=== PATIENT | male | born 1990 | race Caucasian/White ===

== ENCOUNTER → 2017-04-01 | Outpatient (REF) | payer SELFPAY | LOC: M LAB REF 19:28 → M SFHCLUC 19:28 | PROVIDERS: ATTEND Nurse Practitioner Family | DX: J02.9 Acute pharyngitis, unspecified (principal) ==

== ENCOUNTER 2018-09-14 17:40 | Emergency (ER) | payer OTHER, SELFPAY ==
[~2018-09-14] VITALS: Ht 188 cm; Wt 106.7 kg
--- NOTE | 2018-09-14 18:22 | REP ---
Right hand four views : There is no fracture or dislocation. Mineralization and joint spaces are normal. There are no calcifications or foreign bodies. Impression: Negative right hand . Electronically Signed by Salvador Morales MD 09/14/2018 06:13 P
[2018-09-14 18:36] VITALS: BP 147/91
== END 2018-09-14 19:20 | disposition home or self-care (01) ==
LOC: M ED 17:40
DX: S60.141A Contusion of right ring finger with damage to nail, initial encounter (principal); W23.0XXA Caught, crushed, jammed, or pinched between moving objects, initial encounter; Y92.89 Other specified places as the place of occurrence of the external cause; Y93.89 Activity, other specified; Y99.0 Civilian activity done for income or pay

== ENCOUNTER 2019-04-05 13:10 | Emergency (ER) | payer MEDICARE, OTHER, SELFPAY ==
[~2019-04-05] VITALS: Ht 185.4 cm; Wt 102.1 kg
[2019-04-05 14:20] LABS: BASO % 0.4 % (0.0-1.0); EOS % 0.6 % (0.0-3.0); HEMATOCRIT 45.6 % (42.0-52.0); HEMOGLOBIN 15.5 g/dl (13.5-17.5); LYMPH # 1.7 10^3/uL (1.5-5.0); MEAN CORPUSCULAR HEMOGLOBIN 30.6 pg (27.0-33.0); MEAN CORPUSCULAR VOLUME 90.1 fl (80.0-96.0); MONO # 0.6 10^3/uL (0.0-0.8); NEUTROPHILS # 4.7 10^3/uL (1.5-8.5); NEUTROPHILS % 66.3 % (36.0-66.0); PLATELET COUNT, AUTOMATED 243 10^3/uL (150-450); RED BLOOD COUNT 5.06 10^6/uL (4.30-6.10); WHITE BLOOD COUNT 7.1 10^3/uL (4.0-10.0)
--- NOTE | 2019-04-05 14:31 | REP ---
Head CT without contrast: History: Dizziness. Comparison study: No comparison study. CT findings: Bone window settings demonstrate an intact bony calvarium. There is no evidence of skull fracture or incidental bony calvarial lesion. The visualized paranasal sinuses appear clear. No intraorbital abnormality is seen. On soft tissue window setting images; the lateral, third, and fourth ventricles are normal in size and position. Clark-white differentiation pattern is normal above and below the tentorium. There are is no evidence of intracranial hemorrhage. No mass, edema, infarction, or midline shift is seen. No extra-axial fluid collection is appreciated. Impression: Negative noncontrast head CT. Electronically Signed by Meño Parks MD 04/05/2019 02:22 P
[2019-04-05 14:53] LABS: ALBUMIN 4.3 GM/DL (3.2-5.2); ALT/SGPT 29 U/L (12-78); BLOOD UREA NITROGEN 13 MG/DL (7-18); CALCIUM LEVEL 9.3 MG/DL (8.5-10.1); CARBON DIOXIDE LEVEL 30 MEQ/L (21-32); CHLORIDE LEVEL 105 MEQ/L (98-107); CREATININE FOR GFR 1.19 MG/DL (0.70-1.30); GLOMERULAR FILTRATION RATE > 60.0 (>60); GLUCOSE, FASTING 80 MG/DL (70-100); POTASSIUM SERUM 4.7 MEQ/L (3.5-5.1); SODIUM LEVEL 141 MEQ/L (136-145); TOTAL PROTEIN 7.1 GM/DL (6.4-8.2)
[2019-04-05 16:02] VITALS: BP 144/78
--- NOTE | 2019-04-05 20:11 | ECGEPIP ---
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
== END 2019-04-05 16:56 | disposition home or self-care (01) ==
LOC: M ED 13:10
DX: Z72.820 Sleep deprivation (principal); G56.00 Carpal tunnel syndrome, unspecified upper limb; R94.31 Abnormal electrocardiogram [ECG] [EKG]; F41.9 Anxiety disorder, unspecified

== ENCOUNTER → 2019-04-12 | Outpatient (REF) | payer OTHER | LOC: M SFHCLERA 10:00 | PROVIDERS: ATTEND Physician Assistant | DX: Z20.818 Contact with and (suspected) exposure to other bacterial communicable diseases (principal) ==

== ENCOUNTER 2022-12-01 18:58 | Emergency (ER) | payer OTHER, SELFPAY ==
[~2022-12-01] VITALS: Ht 185.4 cm; Wt 111.4 kg
[2022-12-01 19:40] LABS: BASO # 0.1 10^3/uL (0.0-0.2); BASO % 0.5 % (0.0-1.0); EOS # 0.1 10^3/uL (0.0-0.5); EOS % 0.8 % (0.0-3.0); HEMATOCRIT 43.6 % (42.0-52.0); LYMPH # 2.6 10^3/uL (1.5-5.0); LYMPH % 26.3 % (24.0-44.0); MEAN CORPUSCULAR HEMOGLOBIN 29.9 pg (27.0-33.0); MEAN CORPUSCULAR HGB CONC 34.4 g/dl (32.0-36.5); MEAN CORPUSCULAR VOLUME 86.9 fl (80.0-96.0); MONO # 0.7 10^3/uL (0.0-0.8); MONO % 7.5 % (2.0-8.0); NEUTROPHILS # 6.3 10^3/uL (1.5-8.5); NEUTROPHILS % 64.2 % (36.0-66.0); PLATELET COUNT, AUTOMATED 259 10^3/uL (150-450); RED BLOOD COUNT 5.02 10^6/uL (4.30-6.10); WHITE BLOOD COUNT 9.7 10^3/uL (4.0-10.0)
[2022-12-01 19:55] LABS: CK-MB VALUE MASS < 1.0 NG/ML (<3.6); LIPASE 37 U/L (12-53)
[2022-12-01 19:56] LABS: ALBUMIN 4.4 G/DL (3.2-5.2); ALKALINE PHOSPHATASE 82 U/L (46-116); ALT/SGPT 66 U/L (7.0-40); AST/SGOT 29 U/L (<34); BILIRUBIN,DIRECT 0.2 MG/DL (<0.4); BILIRUBIN,TOTAL 0.6 MG/DL (0.3-1.2); CPK CREATINE PHOSPHOKINASE 137 U/L (46-171); INR 1.04; MB/CK RELATIVE INDEX 0.72 (< OR =4); PROTHROMBIN TIME 13.8 SECONDS (12.5-14.5)
[2022-12-01 22:48] LABS: D-DIMER QUANT < 270 ng/ml (<500)
[2022-12-01 23:39] VITALS: BP 152/94
== END 2022-12-01 23:43 | disposition home or self-care (01) ==
LOC: M ED 18:58
DX: R07.89 Other chest pain (principal)

== ENCOUNTER 2024-09-16 09:18 | Emergency (ER) | payer BC, SELFPAY ==
[~2024-09-16] VITALS: Ht 185.4 cm; Wt 122.6 kg
[2024-09-16 09:27] VITALS: BP 145/91; TEMP 97.6; O2SAT 99
[2024-09-16] MEDS: TETRACAINE 0.5% OPHTH SOLN 4ML OD ONE (10:25)
[2024-09-16] MEDS: FLUORESCEIN OPHTH 1MG STRIP OD ONE (10:25)
== END 2024-09-16 12:00 | disposition home or self-care (01) ==
LOC: M ED 09:18
DX: H53.8 Other visual disturbances (principal); F10.10 Alcohol abuse, uncomplicated; F41.9 Anxiety disorder, unspecified

== ENCOUNTER 2024-11-09 00:36 | Emergency (ER) | payer BC ==
[~2024-11-09] VITALS: Ht 185.4 cm; Wt 119.4 kg
[2024-11-09 01:12] LABS: BASO % 0.4 % (0.0-1.0); EOS # 0.1 10^3/uL (0.0-0.5); EOS % 1.2 % (0.0-3.0); HEMATOCRIT 43.7 % (42.0-52.0); HEMOGLOBIN 14.9 g/dl (13.5-17.5); LYMPH # 2.7 10^3/uL (1.5-5.0); LYMPH % 36.4 % (24.0-44.0); MEAN CORPUSCULAR HEMOGLOBIN 29.7 pg (27.0-33.0); MEAN CORPUSCULAR HGB CONC 34.1 g/dl (32.0-36.5); MEAN CORPUSCULAR VOLUME 87.2 fl (80.0-96.0); MONO # 0.8 10^3/uL (0.0-0.8); MONO % 10.2 % (2.0-8.0); NEUTROPHILS # 3.8 10^3/uL (1.5-8.5); NEUTROPHILS % 51.1 % (36.0-66.0); PLATELET COUNT, AUTOMATED 271 10^3/uL (150-450); RED BLOOD COUNT 5.01 10^6/uL (4.30-6.10); WHITE BLOOD COUNT 7.4 10^3/uL (4.0-10.0)
[2024-11-09 01:46] LABS: BLOOD UREA NITROGEN 15 MG/DL (9-23); CALCIUM LEVEL 8.8 MG/DL (8.5-10.1); CARBON DIOXIDE LEVEL 26 MMOL/L (20-31); CHLORIDE LEVEL 106 MMOL/L (98-107); CK-MB VALUE MASS < 1.0 NG/ML (<3.6); CREATININE FOR GFR 0.87 MG/DL (0.70-1.30); GLOMERULAR FILTRATION RATE > 90.0 (>60); GLUCOSE, FASTING 109 MG/DL (60-100); POTASSIUM SERUM 4.1 MMOL/L (3.5-5.1); SODIUM LEVEL 140 MMOL/L (136-145)
[2024-11-09 01:47] LABS: CPK CREATINE PHOSPHOKINASE 241 U/L (46-171); MB/CK RELATIVE INDEX 0.41 (< OR =4)
[2024-11-09 02:48] LABS: CK-MB VALUE MASS < 1.0 NG/ML (<3.6)
[2024-11-09 02:50] LABS: CPK CREATINE PHOSPHOKINASE 245 U/L (46-171)
[2024-11-09 05:43] LABS: MAGNESIUM LEVEL 2.1 MG/DL (1.8-2.4)
[2024-11-09 05:48] LABS: FREE T4 1.06 NG/DL (0.89-1.76); THYROID STIMULATING HORMONE 2.197 uIU/ML (0.55-4.78)
[2024-11-09 07:30] VITALS: BP 137/80; TEMP 98.9
[2024-11-09] MEDS ORDERED: HOLTER MONITOR XX (07:34)
[2024-11-09] MEDS ORDERED: PROP10TA56 PO (07:34)
[2024-11-09 07:43] VITALS: O2SAT 96
== END 2024-11-09 08:16 | disposition home or self-care (01) ==
LOC: M ED 00:36
DX: R00.2 Palpitations (principal); I49.3 Ventricular premature depolarization; Z79.899 Other long term (current) drug therapy

== ENCOUNTER 2024-11-18 13:07 | Emergency (ER) | payer SELFPAY ==
[~2024-11-18] VITALS: Ht 185.4 cm; Wt 113.8 kg
[~2024-11-18 13:07] MED LIST: HOLTER MONITOR XX; PROP10TA56 PO
[2024-11-18 14:00] LABS: BASO % 0.4 % (0.0-1.0); EOS % 0.4 % (0.0-3.0); HEMATOCRIT 45.4 % (42.0-52.0); HEMOGLOBIN 15.4 g/dl (13.5-17.5); MEAN CORPUSCULAR HEMOGLOBIN 29.7 pg (27.0-33.0); MEAN CORPUSCULAR HGB CONC 33.9 g/dl (32.0-36.5); MEAN CORPUSCULAR VOLUME 87.6 fl (80.0-96.0); MONO # 0.5 10^3/uL (0.0-0.8); MONO % 7.3 % (2.0-8.0); NEUTROPHILS # 4.5 10^3/uL (1.5-8.5); NEUTROPHILS % 63.5 % (36.0-66.0); PLATELET COUNT, AUTOMATED 287 10^3/uL (150-450); RED BLOOD COUNT 5.18 10^6/uL (4.30-6.10); WHITE BLOOD COUNT 7.1 10^3/uL (4.0-10.0)
[2024-11-18 14:24] LABS: CALCIUM LEVEL 9.5 MG/DL (8.5-10.1); CREATININE FOR GFR 1.13 MG/DL (0.70-1.30); GLOMERULAR FILTRATION RATE 89.1 (>60); MB/CK RELATIVE INDEX 0.45 (< OR =4); POTASSIUM SERUM 4.2 MMOL/L (3.5-5.1)
[2024-11-18 15:16] LABS: MAGNESIUM LEVEL 1.9 MG/DL (1.8-2.4)
[2024-11-18 15:26] LABS: CK-MB VALUE MASS 1.9 NG/ML (<3.6)
[2024-11-18 15:29] LABS: CPK CREATINE PHOSPHOKINASE 190 U/L (46-171)
[2024-11-18 16:00] VITALS: BP 127/69; TEMP 98.3; O2SAT 97
== END 2024-11-18 16:21 | disposition home or self-care (01) ==
LOC: M ED 13:07
DX: R00.2 Palpitations (principal); R00.0 Tachycardia, unspecified; I49.3 Ventricular premature depolarization